=== PATIENT | female | born 1990 | race Two or more races ===

== ENCOUNTER 2025-02-09 01:38 | Emergency (ER) | payer MEDICAID, SELFPAY ==
[2025-02-09 01:39] VITALS: BMI 34.8
[2025-02-09 01:46] VITALS: BP 124/84; PULSE 74; RESP 18; TEMP 36.6; O2SAT 100
--- NOTE | 2025-02-09 02:22 | PD.EDRME ---
Rapid Medical Screening Exam RME Arrival date/time: 02/09/25 01:38 This is a case of 34-year-old female who came in the emergency room due to abdominal pain radiating to the flank and lower back for 1 day associated with nausea vomiting persistence of the symptoms this patient decided to start consult here in the emergency room Chief Complaint: Abdominal Pain Vital signs: Vital Signs Temperature 98 F 02/09/25 01:46 Pulse Rate 74 02/09/25 01:46 Respiratory Rate 18 02/09/25 01:46 Blood Pressure 124/84 02/09/25 01:46 Pulse Oximetry (%) 100 02/09/25 01:46 Oxygen Delivery Method Room Air 02/09/25 01:46
--- NOTE | 2025-02-09 02:23 | XR_ITS ---
Examination: CT abdomen and pelvis without contrast. Coronal 3-D reconstructions. Sagittal 2-D reconstructions. Date and time of exam:February 09, 2025, 0353 hrs. Indications: Abdominal pain pelvic pain radiating to the lower back beginning today. Comparison: April 16, 2019 CTDI: vol (mGy): 14 DLP: (mGycm): 792 Technique: Axial images of the abdomen have been obtained, 3 mm slice thickness Intravenous contrast material has not been administered. Low dose protocols were performed. One or more of the following dose reduction techniques were used; automated exposure control, adjustment of the mA and/or KV according to patient size, use of iterative reconstruction technique. Findings: No focal liver or splenic lesions No gallstones. No pancreatic or adrenal mass. No renal or ureteral calculi, no hydronephrosis 28 mm fat-containing umbilical hernia. Normal appendix. No bowel obstruction Hypodense mass in the right adnexal region measuring 3.9 cm which may represent a complex cyst Anteverted uterus The osseous structures are intact Impression: Recommend pelvic sonography follow-up to assess for complex right adnexal cyst
[2025-02-09 02:57] LABS: Basophils # (Auto) 0.0 Thou/mm3 (0.0-0.2); Basophils % (Auto) 0 % (0-2.5); Eosinophils # (Auto) 0.1 Thou/mm3 (0.0-0.5); Eosinophils % (Auto) 1 % (0-10); Hematocrit 39.6 % (36.0-46.0); Hemoglobin 13.2 g/dL (12.0-16.0); Immature Granulocytes Auto 0.22 Thou/mm3 (0.00-0.00); Lymphocytes # (Auto) 2.3 Thou/mm3 (1.0-4.8); Lymphocytes % (Auto) 15 % (10-50); Mean Corpuscular HGB Conc 33.3 g/dl (31.0-37.0); Mean Corpuscular Hemoglobin 28.0 pg (25.0-35.0); Mean Corpuscular Volume 84 fL (80-100); Monocytes # (Auto) 0.8 Thou/mm3 (0.0-0.8); Monocytes % (Auto) 5 % (0-12); Neutrophils # (Auto) 11.8 Thou/mm3 (1.8-7.7); Neutrophils % (Auto) 78 % (37-80); Nucleated Red Blood Cell # 0.00 Thou/mm3 (0.00-0.00); Nucleated Red Blood Cell % 0 /100 WBC (0); Platelet Count 237 Thou/mm3 (140-440); RDW Standard Deviation 38.7 fL (36.4-46.3); Red Blood Count 4.72 Miln/mm3 (4.00-5.20); White Blood Count 15.2 Thou/mm3 (3.6-11.0)
[2025-02-09 03:21] LABS: Collection Type, Urine Clean Catch
[2025-02-09 03:21] LABS: Alanine Aminotransferase 15 U/L (10-49); Albumin, Serum 4.4 gm/dL (3.5-5.0); Albumin/Globulin Ratio 2.1 (1.2-2.2); Alkaline Phosphatase 69 U/L (46-116); Anion Gap 10 (7-16); Aspartate Amino Transferase 15 U/L (0-34); BUN/Creatinine Ratio 15 Ratio (12-20); Bilirubin,Total 0.3 mg/dL (0.3-1.2); Blood Urea Nitrogen 9 mg/dL (9-23); Calcium 9.5 mg/dL (8.3-10.6); Calcium (Corrected) 9.5 mg/dL (8.5-10.1); Carbon Dioxide 25.5 mMol/L (20.0-31.0); Chloride 107 mMol/L (98-107); Creatinine (Component) 0.6 mg/dL (0.6-1.3); Estimated Creatinine Clearance 148.0 mL/min (>60); Globulin 2.1 gm/dL (2.3-3.5); Glucose 97 mg/dL (74-106); Lipase 23 U/L (12-53); Osmolality,Calculated 281 (275-295); Potassium 3.9 mMol/L (3.4-5.1); Sodium 142 mMol/L (136-145); Total Protein 6.5 gm/dL (5.7-8.2); eGFR > 60 See Note
--- NOTE | 2025-02-09 03:26 | PD.EDABDPN ---
ED Abdominal Pain RME/HPI General Chief Complaint: Abdominal Pain Stated complaint: LOWER ABDOMINAL PAIN RADIATES TO BACK Arrival date/time: 02/09/25 01:38 RME / HPI RME / HPI narrative: 02/09/25 01:38 This is a case of 34-year-old female who came in the emergency room due to abdominal pain radiating to the flank and lower back for 1 day associated with nausea vomiting persistence of the symptoms this patient decided to start consult here in the emergency room DR. DASILVA MAIN ED EVALUATION: 34 y/o female with presents to ED c/o diffuse abdominal pain x 1 hour [employer]. Denies vomiting. No other concerns or complaints expressed at this time. Related Data Home Medications ?Medication ?Instructions ?Recorded ?Confirmed paroxetine HCl 25 mg 25 mg PO BID 05/13/19 05/13/19 tablet,extended release 24 hr sertraline 25 mg tablet 25 mg PO BID 05/13/19 05/13/19 Previous Rx's ?Medication ?Instructions ?Recorded azithromycin 250 mg tablet See Rx Instructions PO .COMPLEX #6 05/14/19 (Zithromax Z-Tang) tabs hydrocodone 5 mg-acetaminophen 325 1 tab PO Q6H PRN pain #30 tabs 05/14/19 mg tablet ([place]) ibuprofen 800 mg tablet 800 mg PO TID PRN pain #30 tabs 05/14/19 hydroxyzine HCl 25 mg tablet 25 mg PO BID PRN anxiety #10 tabs 02/12/20 dicyclomine 20 mg tablet 20 mg PO QID PRN abdominal pain 02/09/25 #20 tabs ondansetron 4 mg disintegrating 4 mg PO Q6H PRN nausea and 02/09/25 tablet vomiting #20 tabs Allergies Allergy/AdvReac Type Severity Reaction Status Date / Time No Known Allergies Allergy Verified 10/02/21 18:23 Review of Systems Review of Systems Systems Reviewed: All systems reviewed, normal except as documented Past Medical History Past Medical History NEUROLOGIC: Positive Neurological Disorders and Migraine CARDIAC: Positive Cardiac Disorders and Angina GASTROINTESTINAL: Positive Gastrointestinal Disorders and Obesity REPRODUCTIVE: Positive Previous Pregnancies MUSCULOSKELETAL: Positive Musculoskeletal Disorders PSYCHO/SOCIAL: Positive Depression and Anxiety ED Exam Narrative Physical exam: Generally patient is alert oriented and in no obvious distress, heart regular rate and rhythm, lungs clear to auscultation bilaterally, abdomen soft diffusely tender without focal tenderness. No rebound tenderness. Skin is warm, dry musculoskeletal exam showed no costovertebral angle tenderness Course Quality Measures none Orders Category Date Time Status CT abdomen pelvis wo con Stat Exams 02/09/25 02:23 Taken CBC Stat Lab 02/09/25 02:37 Completed Comprehensive Metabolic Panel Stat Lab 02/09/25 02:37 Completed HCG Qualitative,Urine Stat Lab 02/09/25 03:15 Completed Lipase Stat Lab 02/09/25 02:37 Completed Urinalysis Stat Lab 02/09/25 03:15 Completed Morphine Inj Med 02/09/25 03:26 Discontinued 5 mg IM X1 ONE Vital Signs Vital signs: Vital Signs Temperature 98 F 02/09/25 01:46 Pulse Rate 74 02/09/25 01:46 Respiratory Rate 18 02/09/25 01:46 Blood Pressure 124/84 02/09/25 01:46 Pulse Oximetry (%) 100 02/09/25 01:46 Oxygen Delivery Method Room Air 02/09/25 01:46 Abdominal Pain MDM MDM Narrative MDM Narrative:: Scribe Attestation: IHazel, am scribing for and in the presence of Dr. Dasilva. Provider Notation: Although this document has been carefully reviewed, there may still be some phonetic and other typographical errors. These errors are purely grammatical due to imperfections in the software program and should not be construed in any way to compromise the substance of the patient's medical care during this visit. Differential diagnosis: Gallbladder disease, gastritis, gastroenteritis, bowel spasm, bowel obstruction, UTI, ovarian cyst I interpreted all labs. There is a slight leukocytosis. Lipase is normal. LFTs are normal. Kidney function is normal. is negative. There is no urinary tract infection. CT scan of the abdomen pelvis without contrast showed no obstruction and no evidence of acute disease process. Patient received morphine 5 mg IM with benefit. She will be discharged on Zofran and Bentyl to be taken as prescribed. Follow-up with her doctor. Return to ER as needed or if condition worsens. Patient data External records reviewed:: [facility] previous records (Reviewed records from 10/02/21 19:13 Acute cystitis.) Clinical information provided by:: patient Social determinants that could affect healthcare access:: none Patient has the following chronic illnesses:: Migraine, Angina, Obesity, Depression and Anxiety How is presenting disease/condition affected by chronic disease/condition?: exacerbated by Evaluation data The following diagnostics were reviewed and interpreted by me:: lab results and radiology exam(s) Lab and/or radiology exams considered but not ordered:: None Interpretation Summary: RADIOLOGY Abdomen/Pelvis CT: Findings: The lung bases are clear. The liver, gallbladder, pancreas, spleen, kidneys and adrenals are unremarkable on this noncontrast study. A moderate amount of fecal material is present in the colon. No evidence of bowel obstruction. The appendix is within normal limits (coronal images :-[id number]). There is no mesenteric or retroperitoneal adenopathy. The urinary bladder is unremarkable. There is no free fluid or free air. Calcific densities are seen in the pelvis, likely representing phleboliths. Tubal ligation clips are noted in the pelvis. There is a right ovarian cyst, measuring 3 cm. The osseous structures are unremarkable. Impression: No evidence of bowel obstruction, free air or fluid collection. Other findings as described above. Medications / Prescriptions Medications or Prescriptions considered but not ordered:: None Medication administrations:: Medication Administration History Discontinued Medications Morphine Sulfate (Morphine Sulf Inj 10 Mg/Ml Vial) 5 mg IM X1 ONE Stop: 02/09/25 03:27 Last Admin: 02/09/25 03:37 Dose: 5 mg Documented By: JAGJIT See above if any. Consultations Consultation(s) initiated? (list below): No Diagnosis Differential diagnosis abdominal pain: abdominal pain, acute appendicitis, calculus of kidney, constipation, diverticulitis, endometriosis, gastroenteritis and small bowel obstruction Most likely diagnosis given after review of the tests above:: none Admission Indicated Admission indicated?: not indicated Explain why admission is indicated or not indicated:: Patient does not meet admission criteria. Admission Request Was there a request for admission?: No Disposition Plan Disposition Plan: Discharge Discharge Attestation Discharge Attestation: The patient and all family members were given an opportunity to ask questions and understood the discharge instructions. Discharge instructions specifically effects, indications for sooner follow up or return to the emergency department, and the expected course of current diagnosis. Patient condition: Stable Discharge Plan Plan Patient Disposition: HOME (Self Care) Prescriptions/Referrals Prescriptions/Med Rec: New dicyclomine 20 mg tablet 20 mg PO QID PRN (Reason: abdominal pain) Qty: 20 0RF ondansetron 4 mg tablet,disintegrating 4 mg PO Q6H PRN (Reason: nausea and vomiting) Qty: 20 0RF No Action sertraline 25 mg Tablet 25 mg PO BID paroxetine HCl 25 mg Tablet Extended Release 24 Hr 25 mg PO BID hydrocodone-acetaminophen [[place]] 5-325 mg tablet 1 tab PO Q6H MDD 6 PRN (Reason: pain) Qty: 30 0RF ibuprofen 800 mg tablet 800 mg PO TID PRN (Reason: pain) Qty: 30 0RF azithromycin [Zithromax Z-Tang] 250 mg tablet See Rx Instructions .ROUTE .COMPLEX Qty: 6 0RF Rx Instructions: take 500 mg today (day 1), then 250 mg for 4 days (days 2-5) hydroxyzine HCl 25 mg tablet 25 mg PO BID PRN (Reason: anxiety) Qty: 10 0RF Referrals: Mak Canales MD [Primary Care Provider] - In 1 week Problem List Clinical Impression: Abdominal pain Patient/Caregiver Discharge Instructions Education Materials: Abdominal Pain Additional Instructions: Medication as prescribed. Follow-up with your doctor for further treatment and evaluation. Return to ER as needed or if condition worsens. Print Language: Congolese Stand Alone Forms: Melissa Award Info., Patient Portal Info Letter
[2025-02-09 03:35] LABS: HCG Qualitative,Urine Negative
[2025-02-09] MEDS: MORPHINE SULF INJ 10 MG/ML VIAL 5 MG IM (03:37)
[2025-02-09 03:44] VITALS: BP 125/69; PULSE 73; RESP 18; O2SAT 98
[2025-02-09 04:00] VITALS: BP 115/69; PULSE 71; RESP 18; TEMP 36.8; O2SAT 98
[2025-02-09 04:02] LABS: Bilirubin,Urine Negative (Negative); Blood,Urine Negative (Negative); Clarity,Urine Clear (Clear/Hazy); Color,Urine Yellow (Lt Yel-Yel); Glucose, Urine Negative (Negative); Ketones,Urine Negative (Negative); Leukocyte Esterase,Urine Negative (Negative); Nitrite,Urine Negative (Negative); PH,Urine 6.0 (5.0-7.0); Protein,Urine Trace (Neg - Trace); RBC,Urine < 1 /hpf (0-3); Specific Gravity,Urine 1.029 (1.001-1.035); Squamous Epithelial Cell,Urine 4 /hpf (0-5); Urobilinogen,Urine Negative mg/dL (0.0-1.0); WBC,Urine < 1 /hpf (0-5)
[2025-02-09 04:05] LABS: Sperm,Urine Present
--- NOTE | 2025-02-09 04:39 | PRELIM_ITS ---
CT scan of the abdomen and pelvis without intravenous contrast (axial sections with sagittal and coronal reformats) February 09, 2025 0353 hours Clinical History: Abd pain Comparison: No prior study is available for comparison. Findings: The lung bases are clear. The liver, gallbladder, pancreas, spleen, kidneys and adrenals are unremarkable on this noncontrast study. A moderate amount of fecal material is present in the colon. No evidence of bowel obstruction. The appendix is within normal limits (coronal images :-[id number]). There is no mesenteric or retroperitoneal adenopathy. The urinary bladder is unremarkable. There is no free fluid or free air. Calcific densities are seen in the pelvis, likely representing phleboliths. Tubal ligation clips are noted in the pelvis. There is a right ovarian cyst, measuring 3 cm. The osseous structures are unremarkable. Impression: No evidence of bowel obstruction, free air or fluid collection. Other findings as described above. Report Electronically Signed By: Chaz Alexandra 02/09/2025 4:39:17 AM [EST]
== END 2025-02-09 05:02 | disposition home or self-care (01) ==
PROVIDERS: Nurse Practitioner Family; Emergency Provider Emergency Medicine; PCP Family Medicine
DX: N83.201 Unspecified ovarian cyst, right side (principal)
CPT/HCPCS: 36415; 74176; 80053; 81001; 81025; 83690; 85025; 96372; 99283; J2270